=== PATIENT | male | born 1945 | race African-American/Black ===

== ENCOUNTER 2017-06-01 23:55 | Inpatient (IN) | payer OTHER ==
[~2017-06-01] VITALS: Ht 177.8 cm; Wt 72.6 kg
[2017-06-02] MEDS ORDERED: MORPHINE SULFATE 4 MG/ML CPJ (NOT FOR IM USE) IV STA (01:39)
[2017-06-02] MEDS ORDERED: ONDANSETRON HCL 4MG/2ML VIAL IV STA (01:39)
[2017-06-02] MEDS ORDERED: HYDRALAZINE 20MG/ML VIAL IV ONE (02:15)
[2017-06-02 02:39] LABS: HEMATOCRIT. 26.8 % (42.0-52.0); HEMOGLOBIN. 9.3 g/dL (14.0-18.0); MEAN CORPUSCULAR VOLUME 89.6 fL (80.0-94.0); MEAN PLATELET VOLUME 8.7 fl (7.4-10.4); PLATELET 164 x1000/uL (130-400); RED BLOOD CELL COUNT 2.99 mill/uL (4.7-6.1)
[2017-06-02 02:42] LABS: PROTHROMBIN TIME 10.7 sec (9.4-11.6)
[2017-06-02 03:01] LABS: CARBON DIOXIDE 23 mEq/L (21-32); CHLORIDE 104 mEq/L (98-107); ETHANOL BLOOD < 10 mg/dL; TROPONIN I < 0.02 ng/mL (0.00-0.04)
[2017-06-02 05:08] LABS: CLARITY URINE CLOUDY (CLEAR); COLOR URINE YELLOW (YELLOW); KETONES URINE NEGATIVE (NEGATIVE); LEUKOCYTE ESTERASE URINE NEGATIVE (NEGATIVE); NITRITE URINE NEGATIVE (NEGATIVE); OCCULT BLOOD URINE 1+ (NEGATIVE); PROTEIN URINE 3+ (NEGATIVE); SPECIFIC GRAVITY URINE 1.022 (1.005-1.030); UROBILINOGEN URINE 0.2 E.U./dL (0.2-1.0)
[2017-06-02 06:00] LABS: *AMPHETAMINES SCREEN URINE NEGATIVE (NEGATIVE); *BARBITURATES SCREEN URINE NEGATIVE (NEGATIVE); *BENZODIAZEPINES SCREEN URINE NEGATIVE (NEGATIVE); *COCAINE SCREEN URINE NEGATIVE (NEGATIVE); CANNABINOID URINE SCREEN NEGATIVE (NEGATIVE); METHADONE URINE SCREEN NEGATIVE (NEGATIVE); OPIATES URINE SCREEN PRESUMTIVE POSITIVE (NEGATIVE); PHENCYCLIDINE URINE SCREEN NEGATIVE (NEGATIVE)
[2017-06-02 06:18] LABS: PLATELET ESTIMATE NORMAL
[2017-06-02] MEDS ORDERED: ENALAPRIL 2.5MG/2ML VIAL 2ML IV ONE (06:45)
[2017-06-02] MEDS ORDERED: LORAZEPAM 0.5MG TABLET PO PRN (08:45)
[2017-06-02] MEDS ORDERED: DEXTROSE 50% WATER 50ML SYRINGE IV PRN (08:45)
[2017-06-02] MEDS ORDERED: TRAMADOL 50MG TABLET PO PRN (08:45)
[2017-06-02] MEDS ORDERED: ONDANSETRON HCL 4MG/2ML VIAL IV PRN (08:45)
[2017-06-02] MEDS ORDERED: IPRATROPIUM/ALBUTEROL 0.5-3(2.5)MG/3ML NEB INH PRN (08:45)
[2017-06-02] MEDS ORDERED: NITROGLYCERIN 0.4MG TABLET SL SL PRN (08:45)
[2017-06-02] MEDS ORDERED: ACETAMINOPHEN 325MG TABLET PO PRN (08:45)
[2017-06-02] MEDS ORDERED: DIPHENHYDRAMINE 50MG/ML VIAL IV PRN (08:45)
[2017-06-02] MEDS ORDERED: MORPHINE SULFATE 2 MG/ML CPJ (NOT FOR IM USE) IV PRN (08:45)
[2017-06-02] MEDS ORDERED: CLONIDINE 0.1MG TABLET PO PRN (08:45)
[2017-06-02] MEDS ORDERED: DOCUSATE SODIUM 100MG CAPSULE PO PRN (08:45)
[2017-06-02] MEDS ORDERED: MAGNESIUM/ALUMINUM HYDROXIDE/SIMETHICONE 30ML UDC PO PRN (08:45)
[2017-06-02] MEDS ORDERED: NA PHOS,M-B/NA PHOS,DI-BA ENEMA 118ML PR PRN (08:45)
[2017-06-02] MEDS ORDERED: GUAIFENESIN 200MG/10ML SUGAR FREE UDC PO PRN (08:45)
[2017-06-02 09:55] VITALS: BP 197/101
[2017-06-02] MEDS ORDERED: METOPROLOL TARTRATE 25MG TABLET PO SCH (10:00)
[2017-06-02 10:30] VITALS: BP 197/101
[2017-06-02] MEDS: DUTASTERIDE 0.5MG CAPSULE PO SCH (11:55)
[2017-06-02] MEDS: TAMSULOSIN HCL 0.4MG SR CAPSULE PO SCH ×2 (11:55→18:18)
[2017-06-02] MEDS: AMLODIPINE 10MG TABLET PO SCH (11:56)
[2017-06-02] MEDS: ENOXAPARIN 30MG/0.3ML SYR SUBCUT SCH (11:56)
[2017-06-02] MEDS: FAMOTIDINE 20MG/2ML VIAL IV SCH (11:59)
[2017-06-02] MEDS: BLOOD SUGAR DIAGNOSTIC STRIP TEST SCH ×3 (12:22→21:50)
[2017-06-02] MEDS: INSULIN LISPRO 100 UNITS/ML SUBCUT SCH ×3 (12:22→21:53)
[2017-06-02] MEDS: HYDRALAZINE HCL 50MG TABLET PO SCH ×2 (13:48→21:50)
[2017-06-02] MEDS: CEFTRIAXONE 1 G PREMIX 50 ML IV SCH (13:48)
[2017-06-02] MEDS: SODIUM CHLORIDE 0.9% 1,000 ML IV SCH ×2 (13:49→21:50)
[2017-06-02 16:03] LABS: CREATINE KINASE MB FRACTION 2.3 ng/mL (0.5-3.6); TROPONIN I 0.04 ng/mL (0.00-0.04)
[2017-06-02 16:06] VITALS: BP 184/88
[2017-06-02] MEDS: MINOXIDIL 2.5MG TABLET PO SCH (18:18)
[2017-06-02 18:37] LABS: TOTAL IRON BINDING CAPACITY 227 ug/dL (250-450)
[2017-06-02 20:00] VITALS: BP 147/72
[2017-06-02] MEDS ORDERED: ZOLPIDEM TARTRATE 5MG TABLET PO PRN (21:00)
[2017-06-02] MEDS: METOPROLOL TARTRATE 25MG TABLET PO SCH (21:49)
[2017-06-03] VITALS (8 sets, daily range): BP systolic 101–132; BP diastolic 43–61
[2017-06-03 00:10] LABS: CREATINE KINASE MB FRACTION 2.4 ng/mL (0.5-3.6); TROPONIN I 0.05 ng/mL (0.00-0.04)
[2017-06-03] MEDS: HYDRALAZINE HCL 50MG TABLET PO SCH ×3 (06:00→23:20)
[2017-06-03] MEDS: TAMSULOSIN HCL 0.4MG SR CAPSULE PO SCH ×2 (06:10→17:01)
[2017-06-03] MEDS: BLOOD SUGAR DIAGNOSTIC STRIP TEST SCH ×4 (06:27→20:43)
[2017-06-03] MEDS: INSULIN LISPRO 100 UNITS/ML SUBCUT SCH ×4 (07:50→21:03)
[2017-06-03] MEDS: AMLODIPINE 10MG TABLET PO SCH (09:00)
[2017-06-03] MEDS: METOPROLOL TARTRATE 25MG TABLET PO SCH ×2 (09:00→20:37)
[2017-06-03] MEDS: MINOXIDIL 2.5MG TABLET PO SCH (09:00)
[2017-06-03] MEDS: CEFTRIAXONE 1 G PREMIX 50 ML IV SCH (09:03)
[2017-06-03] MEDS: ENOXAPARIN 30MG/0.3ML SYR SUBCUT SCH (09:04)
[2017-06-03] MEDS: DUTASTERIDE 0.5MG CAPSULE PO SCH (09:04)
[2017-06-03] MEDS: FAMOTIDINE 20MG/2ML VIAL IV SCH (09:04)
[2017-06-03] MEDS ORDERED: MINOXIDIL 2.5MG TABLET PO SCH (09:15)
[2017-06-03 12:14] LABS: BASOPHILS % 0.5 % (0.0-2.0); EOSINOPHILS % 0.2 % (0.0-5.0); HEMATOCRIT. 22.9 % (42.0-52.0); HEMOGLOBIN. 7.8 g/dL (14.0-18.0); LYMPHOCYTES % 22.2 % (20.0-50.0); MEAN CORPUSCULAR HEMOGLOBIN 30.7 pg (28.0-32.0); MEAN CORPUSCULAR VOLUME 90.5 fL (80.0-94.0); MONOCYTES % 7.7 % (2.0-8.0); NEUTROPHILS % 69.4 % (40.0-76.0); PLATELET 142 x1000/uL (130-400); RED BLOOD CELL COUNT 2.53 mill/uL (4.7-6.1); RED CELL DISTRIBUTION WIDTH 13.5 % (11.6-14.6)
[2017-06-03] MEDS: SODIUM CHLORIDE 0.9% 1,000 ML IV SCH (17:00)
== END 2017-06-04 01:49 | disposition short-term general hospital (02) | DRG 693 ==
LOC: ER 23:55 → 6WST 06-02 05:13 → EDBEDREQ 06-02 05:17 → ENRESERV 06-02 07:24
PROVIDERS: ADMIT Internal Medicine; ATTEND Internal Medicine
DX: N13.8 Other obstructive and reflux uropathy (principal); N17.0 Acute kidney failure with tubular necrosis; E44.1 Mild protein-calorie malnutrition; D63.8 Anemia in other chronic diseases classified elsewhere; E11.9 Type 2 diabetes mellitus without complications; I10 Essential (primary) hypertension; I16.1 Hypertensive emergency; N40.1 Benign prostatic hyperplasia with lower urinary tract symptoms; N20.0 Calculus of kidney; Z82.49 Family history of ischemic heart disease and other diseases of the circulatory system; Z86.73 Personal history of transient ischemic attack (TIA), and cerebral infarction without residual deficits; Z68.23 Body mass index [BMI] 23.0-23.9, adult
CPT/HCPCS: 36415; 71010; 74176; 76770; 80048; 80053; 80061; 80305; 81001; 82550; 82553; 82607; 82746; 82962; 83036; 83540; 83550; 83605; 83690; 83880; 84484; 85025; 85610; 87086; 93005; 96374; 96375; 99285; A6261; G0482; J0360; J0696; J1650; J1815; J2270; J2405; J3490; J7030

== ENCOUNTER 2019-06-14 17:18 | Emergency (ER) | payer OTHER ==
[~2019-06-14] VITALS: Ht 180.3 cm; Wt 78.0 kg
[2019-06-14] MEDS ORDERED: LABETALOL 5MG/ML SYR 20 MG/4 ML SYRINGE IV ONE (19:15)
[2019-06-14 19:35] LABS: CLARITY URINE CLEAR (CLEAR); COLOR URINE YELLOW (YELLOW); KETONES URINE NEGATIVE (NEGATIVE); LEUKOCYTE ESTERASE URINE NEGATIVE (NEGATIVE); NITRITE URINE NEGATIVE (NEGATIVE); OCCULT BLOOD URINE 2+ (NEGATIVE); PROTEIN URINE 3+ (NEGATIVE); SPECIFIC GRAVITY URINE 1.016 (1.005-1.030); UROBILINOGEN URINE 0.2 E.U./dL (0.2-1.0)
[2019-06-14 19:36] LABS: CHLORIDE 113 mEq/L (98-107)
[2019-06-14 19:41] LABS: BASOPHILS % 0.2 % (0.0-2.0); EOSINOPHILS % 0.1 % (0.0-5.0); HEMATOCRIT. 21.2 % (42.0-52.0); HEMOGLOBIN. 7.1 g/dL (14.0-18.0); LYMPHOCYTES % 11.3 % (20.0-50.0); MEAN CORPUSCULAR HEMOGLOBIN 30.8 pg (28.0-32.0); MEAN CORPUSCULAR VOLUME 91.4 fL (80.0-94.0); MONOCYTES % 5.2 % (2.0-8.0); NEUTROPHILS % 83.2 % (40.0-76.0); PLATELET 149 x1000/uL (130-400); RED BLOOD CELL COUNT 2.32 mill/uL (4.7-6.1); RED CELL DISTRIBUTION WIDTH 13.3 % (11.6-14.6)
[2019-06-14 19:44] LABS: CREATINE KINASE 290 IU/L (39-308)
[2019-06-14] MEDS ORDERED: SODIUM CHLORIDE 0.9% 500 ML IV ONE (20:00)
[2019-06-14] MEDS ORDERED: ACETAMINOPHEN 650MG SUPP PR PRN (20:15)
[2019-06-14] MEDS ORDERED: IPRATROPIUM/ALBUTEROL 0.5-3(2.5)MG/3ML NEB HHN PRN (20:15)
[2019-06-14] MEDS ORDERED: DIPHENHYDRAMINE 50MG/ML VIAL IV PRN (20:15)
[2019-06-14] MEDS ORDERED: ENOXAPARIN 40MG/0.4ML SYR SUBCUT SCH (20:15)
[2019-06-14] MEDS ORDERED: ONDANSETRON HCL 4MG/2ML INJ IV PRN (20:15)
[2019-06-14] MEDS ORDERED: CLONIDINE 0.1MG TABLET PO PRN (20:15)
[2019-06-14] MEDS ORDERED: ACETAMINOPHEN 325MG TABLET PO PRN (20:15)
[2019-06-14] MEDS ORDERED: MAGNESIUM/ALUMINUM HYDROXIDE/SIMETHICONE 30ML UDC PO PRN (20:15)
[2019-06-14] MEDS ORDERED: ACETAMINOPHEN 650MG/20.3ML UDC GT PRN (20:15)
[2019-06-14] MEDS ORDERED: DEXTROSE 50% WATER 50ML SYRINGE IV PRN (20:30)
[2019-06-14] MEDS ORDERED: INSULIN LISPRO 100 UNITS/ML SUBCUT SCH (21:00)
[2019-06-14] MEDS ORDERED: BLOOD SUGAR DIAGNOSTIC STRIP TEST SCH (21:00)
[2019-06-14] MEDS ORDERED: SODIUM CHLORIDE 0.9% INJ 3ML FLUSH IVF SCH (22:00)
[2019-06-14] MEDS ORDERED: CLONIDINE 0.2MG TABLET PO ONE (22:15)
[2019-06-14] MEDS ORDERED: SODIUM CHLORIDE 0.45% 1,000 ML IV SCH (23:00)
[2019-06-14 23:52] VITALS: BP 187/102
== END 2019-06-15 01:09 | disposition short-term general hospital (02) ==
LOC: ER 17:18 → CANRESERV 21:17 → ENRESERV 21:17 → ER 06-15 01:09 → CANBEDREQ 06-15 10:31
DX: E11.22 Type 2 diabetes mellitus with diabetic chronic kidney disease (principal); I12.9 Hypertensive chronic kidney disease with stage 1 through stage 4 chronic kidney disease, or unspecified chronic kidney disease; N18.9 Chronic kidney disease, unspecified; N17.9 Acute kidney failure, unspecified; D64.9 Anemia, unspecified; R53.1 Weakness; F03.90 Unspecified dementia, unspecified severity, without behavioral disturbance, psychotic disturbance, mood disturbance, and anxiety; Z86.73 Personal history of transient ischemic attack (TIA), and cerebral infarction without residual deficits; W18.39XA Other fall on same level, initial encounter; Y93.89 Activity, other specified; Y92.89 Other specified places as the place of occurrence of the external cause; Y99.8 Other external cause status
CPT/HCPCS: 36415; 70450; 80053; 81003; 82550; 84443; 84484; 85025; 93005; 96374; 99285; J3490; J7040

== ENCOUNTER 2019-08-28 14:32 | Emergency (ER) | payer OTHER ==
[~2019-08-28] VITALS: Ht 182.9 cm; Wt 73.0 kg
[2019-08-28] MEDS ORDERED: LASIX (14:37)
[2019-08-28] MEDS ORDERED: ATENOLOL (14:37)
[2019-08-28] MEDS ORDERED: METFORMIN (14:37)
[2019-08-28] MEDS ORDERED: ONDANSETRON HCL 4MG/2ML INJ IV ONE (15:00)
[2019-08-28] MEDS ORDERED: MORPHINE SULFATE 2 MG/ML CPJ (NOT FOR IM USE) IV ONE (15:00)
[2019-08-28 15:18] LABS: BASOPHILS % 0.4 % (0.0-2.0); EOSINOPHILS % 0.2 % (0.0-5.0); HEMATOCRIT. 35.3 % (42.0-52.0); HEMOGLOBIN. 11.8 g/dL (14.0-18.0); LYMPHOCYTES % 7.5 % (20.0-50.0); MEAN CORPUSCULAR HEMOGLOBIN 30.6 pg (28.0-32.0); MEAN CORPUSCULAR VOLUME 91.2 fL (80.0-94.0); MEAN PLATELET VOLUME 8.6 fl (7.4-10.4); MONOCYTES % 4.1 % (2.0-8.0); NEUTROPHILS % 87.8 % (40.0-76.0); PLATELET 211 x1000/uL (130-400); RED BLOOD CELL COUNT 3.87 mill/uL (4.7-6.1); RED CELL DISTRIBUTION WIDTH 16.5 % (11.6-14.6)
[2019-08-28 15:25] LABS: CHLORIDE 106 mEq/L (98-107)
[2019-08-28 15:27] LABS: ETHANOL BLOOD < 10 mg/dL
[2019-08-28 15:28] LABS: PROTHROMBIN TIME 10.6 sec (9.6-11.0)
[2019-08-28] MEDS ORDERED: LABETALOL 5MG/ML SYR 20 MG/4 ML SYRINGE IV ONE ×2 (15:45→20:15)
[2019-08-28 17:29] LABS: *AMPHETAMINES SCREEN URINE NEGATIVE (NEGATIVE); *BARBITURATES SCREEN URINE NEGATIVE (NEGATIVE); *BENZODIAZEPINES SCREEN URINE NEGATIVE (NEGATIVE); *COCAINE SCREEN URINE NEGATIVE (NEGATIVE)
[2019-08-28 17:30] LABS: CANNABINOID URINE SCREEN NEGATIVE (NEGATIVE); METHADONE URINE SCREEN NEGATIVE (NEGATIVE); PHENCYCLIDINE URINE SCREEN NEGATIVE (NEGATIVE)
[2019-08-28] MEDS ORDERED: HYDRALAZINE 20MG/ML VIAL IV ONE (19:30)
[2019-08-28 20:10] VITALS: BP 179/87
[2019-08-29 20:16] LABS: OPIATES URINE SCREEN NEGATIVE (NEGATIVE)
== END 2019-08-28 20:27 | disposition short-term general hospital (02) ==
LOC: ER 14:40
DX: S72.142A Displaced intertrochanteric fracture of left femur, initial encounter for closed fracture (principal); M97.02XA Periprosthetic fracture around internal prosthetic left hip joint, initial encounter; E11.22 Type 2 diabetes mellitus with diabetic chronic kidney disease; I12.0 Hypertensive chronic kidney disease with stage 5 chronic kidney disease or end stage renal disease; N18.6 End stage renal disease; R55 Syncope and collapse; W18.39XA Other fall on same level, initial encounter; Y93.01 Activity, walking, marching and hiking; Y92.89 Other specified places as the place of occurrence of the external cause; Y99.8 Other external cause status
CPT/HCPCS: 36415; 70450; 71045; 73502; 73562; 80053; 80305; 80320; 82962; 84484; 85025; 85610; 93005; 96374; 96375; 96376; 99285; J0360; J2270; J2405; J3490; G0480

== ENCOUNTER 2020-01-09 11:47 | Emergency (ER) | payer OTHER ==
[~2020-01-09] VITALS: Ht 180.3 cm; Wt 82.0 kg
[~2020-01-09 11:47] MED LIST: ATENOLOL; LASIX; METFORMIN
[2020-01-09 13:09] LABS: BASOPHILS % 0.7 % (0.0-2.0); EOSINOPHILS % 0.5 % (0.0-5.0); HEMATOCRIT. 34.7 % (42.0-52.0); HEMOGLOBIN. 11.6 g/dL (14.0-18.0); LYMPHOCYTES % 41.8 % (20.0-50.0); MEAN CORPUSCULAR HEMOGLOBIN 31.9 pg (28.0-32.0); MEAN CORPUSCULAR VOLUME 95.6 fL (80.0-94.0); MEAN PLATELET VOLUME 8.7 fl (7.4-10.4); PLATELET 175 x1000/uL (130-400); RED BLOOD CELL COUNT 3.63 mill/uL (4.7-6.1); RED CELL DISTRIBUTION WIDTH 15.5 % (11.6-14.6)
[2020-01-09 13:16] LABS: CHLORIDE 116 mEq/L (98-107)
[2020-01-09] MEDS ORDERED: SODIUM BICARBONATE 8.4% 1 MEQ/ML 50ML SYR IV ONE (14:15)
[2020-01-09] MEDS ORDERED: DEXTROSE 50% WATER 50ML SYRINGE IV ONE (14:15)
[2020-01-09] MEDS ORDERED: INSULIN REGULAR (HUMULIN R) 300UNITS/3ML IV ONE (14:15)
[2020-01-09 14:37] LABS: INR 1.1; PROTHROMBIN TIME 11.1 sec (9.6-11.0)
[2020-01-09 18:30] VITALS: BP 168/65
== END 2020-01-09 17:39 | disposition short-term general hospital (02) ==
LOC: ER 11:47 → CANBEDREQ 19:44
DX: I12.0 Hypertensive chronic kidney disease with stage 5 chronic kidney disease or end stage renal disease (principal); E11.22 Type 2 diabetes mellitus with diabetic chronic kidney disease; N18.6 End stage renal disease; E87.5 Hyperkalemia; Z86.73 Personal history of transient ischemic attack (TIA), and cerebral infarction without residual deficits; Z91.15 Patient's noncompliance with renal dialysis; Z99.2 Dependence on renal dialysis; Z79.84 Long term (current) use of oral hypoglycemic drugs; Z79.01 Long term (current) use of anticoagulants; Z88.5 Allergy status to narcotic agent; Z88.6 Allergy status to analgesic agent
CPT/HCPCS: 36415; 70450; 71045; 80053; 84484; 85025; 85610; 93005; 96374; 96375; 99285; J1815; J3490

== ENCOUNTER 2020-08-19 13:50 | Emergency (ER) | payer OTHER ==
[~2020-08-19] VITALS: Ht 180.3 cm; Wt 83.0 kg
[2020-08-19] MEDS ORDERED: SODIUM CHLORIDE 0.9% 1,000 ML IV ONE (14:15)
[2020-08-19] MEDS ORDERED: TETANUS, DIPHTHERIA, PERTUSSIS VAC/PF 0.5ML (>7YR OLD) IM ONE (14:30)
[2020-08-19] MEDS ORDERED: LIDOCAINE HCL/EPINEPHRINE 1%-EPI 1:100,000 50 ML VIAL INFIL ONE (14:30)
[2020-08-19 14:42] LABS: BASOPHILS % 0.3 % (0.0-2.0); EOSINOPHILS % 0.6 % (0.0-5.0); HEMATOCRIT. 38.7 % (42.0-52.0); HEMOGLOBIN. 12.5 g/dL (14.0-18.0); LYMPHOCYTES % 10.2 % (20.0-50.0); MEAN CORPUSCULAR HEMOGLOBIN 31.7 pg (28.0-32.0); MEAN CORPUSCULAR VOLUME 97.7 fL (80.0-94.0); MEAN PLATELET VOLUME 8.3 fl (7.4-10.4); MONOCYTES % 4.5 % (2.0-8.0); NEUTROPHILS % 84.4 % (40.0-76.0); PLATELET 157 x1000/uL (130-400); RED BLOOD CELL COUNT 3.96 mill/uL (4.7-6.1); RED CELL DISTRIBUTION WIDTH 15.9 % (11.6-14.6)
[2020-08-19 14:50] LABS: CHLORIDE 106 mEq/L (98-107)
[2020-08-19 14:53] LABS: PROTHROMBIN TIME 10.5 sec (9.6-11.0)
[2020-08-19 14:59] LABS: BETA HYDROXYBUTYRATE 0.1 mMol/L (0.0-0.3)
[2020-08-19] MEDS ORDERED: ATENOLOL 25MG TABLET PO ONE (16:30)
[2020-08-19 19:46] VITALS: BP 155/88
== END 2020-08-19 19:45 | disposition home or self-care (01) ==
LOC: ER 14:08
DX: R55 Syncope and collapse (principal); S09.8XXA Other specified injuries of head, initial encounter; S01.511A Laceration without foreign body of lip, initial encounter; E11.65 Type 2 diabetes mellitus with hyperglycemia; W01.0XXA Fall on same level from slipping, tripping and stumbling without subsequent striking against object, initial encounter; Y93.89 Activity, other specified; I12.0 Hypertensive chronic kidney disease with stage 5 chronic kidney disease or end stage renal disease; E11.22 Type 2 diabetes mellitus with diabetic chronic kidney disease; Y92.89 Other specified places as the place of occurrence of the external cause; N18.6 End stage renal disease; Z99.2 Dependence on renal dialysis; Z86.73 Personal history of transient ischemic attack (TIA), and cerebral infarction without residual deficits; Z79.899 Other long term (current) drug therapy; Z79.84 Long term (current) use of oral hypoglycemic drugs; Z23 Encounter for immunization
CPT/HCPCS: 36415; 70450; 71045; 72125; 72170; 80053; 82010; 83605; 83690; 84484; 85025; 85610; 86850; 86900; 86901; 90471; 90715; 93005; 99285; J7030

== ENCOUNTER 2022-01-04 12:13 | Emergency (ER) | payer OTHER ==
[~2022-01-04] VITALS: Ht 177.8 cm; Wt 90.0 kg
[2022-01-04 13:58] LABS: CHLORIDE 105 mEq/L (98-107)
[2022-01-04 14:03] LABS: BASOPHILS % 0.3 % (0.0-2.0); EOSINOPHILS % 0.2 % (0.0-5.0); HEMATOCRIT. 36.2 % (42.0-52.0); HEMOGLOBIN. 11.6 g/dL (14.0-18.0); LYMPHOCYTES % 8.4 % (20.0-50.0); MEAN CORPUSCULAR HEMOGLOBIN 30.7 pg (28.0-32.0); MEAN CORPUSCULAR VOLUME 95.8 fL (80.0-94.0); MEAN PLATELET VOLUME 8.5 fl (7.4-10.4); MONOCYTES % 11.2 % (2.0-8.0); NEUTROPHILS % 79.9 % (40.0-76.0); PLATELET 130 x1000/uL (130-400); RED BLOOD CELL COUNT 3.78 mill/uL (4.7-6.1); RED CELL DISTRIBUTION WIDTH 17.3 % (11.6-14.6)
[2022-01-04] MEDS ORDERED: IOHEXOL-350 100 ML BOTTLE ONE (14:25)
[2022-01-04] MEDS ORDERED: ASPIRIN 81MG TABLET PO ONE (14:45)
[2022-01-04] MEDS ORDERED: CLONIDINE 0.1MG TABLET PO ONE (20:00)
[2022-01-04 21:18] VITALS: BP 119/55
== END 2022-01-04 21:38 | disposition short-term general hospital (02) ==
LOC: ER 12:13 → CANBEDREQ 21:43
DX: U07.1 COVID-19 (principal); R53.1 Weakness; R47.81 Slurred speech; I12.0 Hypertensive chronic kidney disease with stage 5 chronic kidney disease or end stage renal disease; Z86.73 Personal history of transient ischemic attack (TIA), and cerebral infarction without residual deficits; I49.1 Atrial premature depolarization; E11.65 Type 2 diabetes mellitus with hyperglycemia; E11.22 Type 2 diabetes mellitus with diabetic chronic kidney disease; N18.6 End stage renal disease; Z99.2 Dependence on renal dialysis
CPT/HCPCS: 70496; 70498; 71045; 80053; 83880; 84484; 85025; 85610; 85730; 87426; 93005; 99285; C9803; Q9967

== ENCOUNTER 2022-04-03 22:17 | Emergency (ER) | payer OTHER ==
[~2022-04-03] VITALS: Ht 175.3 cm; Wt 58.0 kg
[2022-04-03] MEDS ORDERED: ASPIRIN 81MG TABLET PO ONE (22:30)
[2022-04-04 00:13] LABS: BASOPHILS % 0.1 % (0.0-2.0); EOSINOPHILS % 0.1 % (0.0-5.0); HEMATOCRIT. 39.1 % (42.0-52.0); HEMOGLOBIN. 12.9 g/dL (14.0-18.0); LYMPHOCYTES % 13.5 % (20.0-50.0); MEAN CORPUSCULAR HEMOGLOBIN 30.6 pg (28.0-32.0); MEAN CORPUSCULAR VOLUME 92.6 fL (80.0-94.0); MEAN PLATELET VOLUME 8.4 fl (7.4-10.4); MONOCYTES % 6.4 % (2.0-8.0); NEUTROPHILS % 79.9 % (40.0-76.0); PLATELET 150 x1000/uL (130-400); RED BLOOD CELL COUNT 4.22 mill/uL (4.7-6.1); RED CELL DISTRIBUTION WIDTH 15.7 % (11.6-14.6)
[2022-04-04] MEDS ORDERED: ASPIRIN 81MG TABLET PO NR (00:30)
[2022-04-04 00:37] LABS: CHLORIDE 101 mEq/L (98-107)
[2022-04-04] MEDS ORDERED: ENALAPRIL 1.25MG/ML VIAL 1ML IV NR (03:30)
[2022-04-04] MEDS ORDERED: CLONIDINE 0.2MG TABLET PO NR (03:30)
[2022-04-04 05:45] VITALS: BP 127/78
== END 2022-04-04 05:49 | disposition left against medical advice (07) ==
LOC: ER 22:17
DX: R53.1 Weakness (principal); E11.9 Type 2 diabetes mellitus without complications; Z53.21 Procedure and treatment not carried out due to patient leaving prior to being seen by health care provider; Z88.5 Allergy status to narcotic agent; Z88.6 Allergy status to analgesic agent; Z88.8 Allergy status to other drugs, medicaments and biological substances; Z86.73 Personal history of transient ischemic attack (TIA), and cerebral infarction without residual deficits
CPT/HCPCS: 36415; 71045; 80053; 83880; 84484; 85025; 93005; 99285

== ENCOUNTER 2023-01-26 20:57 | Emergency (ER) | payer OTHER ==
[~2023-01-26] VITALS: Ht 177.8 cm; Wt 63.0 kg
[2023-01-26 20:59] VITALS: O2SAT 97
[2023-01-27 00:06] LABS: HEMATOCRIT. 40.4 % (42.0-52.0); HEMOGLOBIN. 12.9 g/dL (14.0-18.0); LYMPHOCYTES % 9.8 % (20.0-50.0); MEAN CORPUSCULAR HEMOGLOBIN 31.5 pg (28.0-32.0); MEAN CORPUSCULAR HGB CONC 32.1 g/dL (31.0-37.0); MEAN CORPUSCULAR VOLUME 98.2 fL (80.0-94.0); MEAN PLATELET VOLUME 8.4 fl (7.4-10.4); MONOCYTES % 2.6 % (2.0-8.0); NEUTROPHILS % 87.6 % (40.0-76.0); PLATELET 157 x1000/uL (130-400); RED BLOOD CELL COUNT 4.11 mill/uL (4.7-6.1); RED CELL DISTRIBUTION WIDTH 15.5 % (11.6-14.6); WHITE BLOOD COUNT 14.8 x1000/uL (4.5-11.0)
[2023-01-27 00:15] LABS: CHLORIDE 103 mEq/L (98-107); INDEX HEMOLYSI 3 (1-3); INDEX ICTERIC 1 (1-4); INDEX LIPEMIC 1 (1-3); POTASSIUM 3.9 mEq/L (3.5-5.1); SODIUM 136 mEq/L (136-145)
[2023-01-27 00:23] LABS: ALANINE AMINOTRANSFERASE 30 IU/L (13-61); ALBUMIN 3.5 g/dL (3.4-5.0); ASPARTATE AMINOTRANSFERASE 19 IU/L (15-37); BILIRUBIN TOTAL 0.5 mg/dL (0.1-1.0); CALCIUM 8.9 mg/dL (8.5-10.1); CARBON DIOXIDE 25 mEq/L (21-32); CREATININE 4.3 mg/dL (0.6-1.3); GLUCOSE 173 mg/dL (70-105); PROTEIN TOTAL 9.6 g/dL (6.0-8.3); UREA NITROGEN BLOOD 24 mg/dL (7-21)
[2023-01-27] MEDS ORDERED: ONDANSETRON HCL 4MG/2ML INJ IV STA (02:13)
[2023-01-27 07:00] VITALS: TEMP 98.3
[2023-01-27 09:07] VITALS: BP 167/85; PULSE 94; RESP 18
== END 2023-01-27 09:33 | disposition home or self-care (01) ==
LOC: ER 20:57
DX: N19 Unspecified kidney failure (principal); R11.2 Nausea with vomiting, unspecified; D64.9 Anemia, unspecified; I12.0 Hypertensive chronic kidney disease with stage 5 chronic kidney disease or end stage renal disease; E11.22 Type 2 diabetes mellitus with diabetic chronic kidney disease; Z99.2 Dependence on renal dialysis
CPT/HCPCS: 36415; 71045; 74176; 80053; 85025; 99285; J2405